=== PATIENT | female | born 1955 | race Caucasian/White ===

== ENCOUNTER 2022-04-04 08:02 | Emergency (ER) | payer OTHER ==
[2022-04-04] MEDS ORDERED: Lidocaine 1% PF 5 ML VIAL ONE (09:37)
== END 2022-04-04 10:25 | disposition home or self-care (01) ==
LOC: MADERS 08:02
DX: S01.112A Laceration without foreign body of left eyelid and periocular area, initial encounter (principal); I10 Essential (primary) hypertension; E11.9 Type 2 diabetes mellitus without complications; E78.00 Pure hypercholesterolemia, unspecified; W22.09XA Striking against other stationary object, initial encounter; Z79.899 Other long term (current) drug therapy; Z79.84 Long term (current) use of oral hypoglycemic drugs
CPT/HCPCS: 12013; 70450